=== PATIENT | male | born 1960 | race Hispanic/Latino ===

== ENCOUNTER 2017-05-02 17:53 | Emergency (ER) | payer BC, MEDICAID ==
[2017-05-02] MEDS ORDERED: Sodium Chloride 0.9% 500 ML IV STA (18:13)
[2017-05-02 18:16] VITALS: RESP 17; TEMP 97.7; O2SAT 100
--- NOTE | 2017-05-02 18:28 | ED PDOC ---
Arrival/HPI - General Historian: Patient - History of Present Illness Time/Duration: Prior to Arrival Symptom Onset: Sudden Symptom Course: Improving Quality: Other Severity Level: Moderate (weakness/shaking) Activities at Onset: Light Context: Sitting, Other (at library) <Alicja George - Last Filed: 05/02/17 19:56> <Chelsie Sebastian - Last Filed: 05/02/17 20:12> - General Chief Complaint: Dizziness/Lightheaded Time Seen by Provider: 05/02/17 17:54 - History of Present Illness Narrative History of Present Illness (Text): 05/02/17 18:30 This is a 56Y M with PMH CAD, CHF (EF~41%), HTN, DM here for sudden onset of dizziness and weakness. He reports he was in the library looking for jobs when he suddenly felt dizzy and generalized weakness. He told the special collections librarian to call EMS. Patient reports he did not lose consciousness, fall or have any trauma. He states that he has not eaten since Tuesday. He reports he is worried about his bills and would rather pay for his home rather than food. He denies having any CP, SOB, n/v/d, numbness/tingling, slurred speech, vision changes or fevers. The patient states he does have chills. He denies taking any medications at home. When reviewed previous records at [facility], it is noted that he is supposed to be on multiple medications. He was last d/c from [facility] on January 2017 for CHF exacerbation. (Alicja George) Past Medical History - Provider Review Nursing Documentation Reviewed: Yes - Travel History Have you recently traveled outside [place] w/in the past 3 mons?: No - Infectious Disease Hx of Infectious Diseases: None - Cardiac Hx Cardiac Disorders: Yes Hx Congestive Heart Failure: Yes Hx Hypertension: Yes Other/Comment: unknown cardiac output problem - Endocrine/Metabolic Hx Diabetes Mellitus Type 2: Yes - Psychiatric Hx Substance Use: No <Alicja George - Last Filed: 05/02/17 19:56> Family/Social History - Physician Review Nursing Documentation Reviewed: Yes Family/Social History: Diabetes (mom), Neoplasm/Cancer (lung) Smoking Status: Never Smoked Hx Alcohol Use: No Hx Substance Use: No <Alicja George - Last Filed: 05/02/17 19:56> Allergies/Home Meds <Alicja George - Last Filed: 05/02/17 19:56> <Chelsie Sebastian - Last Filed: 05/02/17 20:12> Allergies/Adverse Reactions: Allergies No Known Allergies Allergy (Verified 05/02/17 18:02) Home Medications: Home Meds Medication Instructions Recorded Confirmed Unobtainable 05/02/17 05/02/17 Review of Systems - Physician Review All systems were reviewed & negative as marked: Yes - Review of Systems Constitutional: Normal, Other (chills). absent: Fevers Eyes: Normal. absent: Vision Changes ENT: Normal. absent: Hearing Changes Respiratory: Normal. absent: SOB, Cough Cardiovascular: Normal. absent: Chest Pain, Palpitations Gastrointestinal: Normal. absent: Abdominal Pain, Diarrhea, Nausea, Vomiting Genitourinary Male: Normal. absent: Dysuria, Frequency Musculoskeletal: Normal. absent: Arthralgias Skin: Normal. absent: Rash, Pruritis Neurological: Dizziness, Other (generalized weakness and tremors). absent: Headache Endocrine: Normal. absent: Diaphoresis Psychiatric: Normal. absent: Anxiety, Depression <Alicja George - Last Filed: 05/02/17 19:56> Physical Exam Vital Signs Reviewed: Yes Temperature: Afebrile Blood Pressure: Normal Pulse: Regular Respiratory Rate: Normal Appearance: Positive for: Well-Appearing, Non-Toxic, Comfortable Pain Distress: None Mental Status: Positive for: Alert and Oriented X 3 Finger Stick Blood Glucose: 63 - Systems Exam Head: Present: Atraumatic, Normocephalic Pupils: Present: PERRL Extroacular Muscles: Present: EOMI Conjunctiva: Present: Normal Mouth: Present: Moist Mucous Membranes Neck: Present: Normal Range of Motion Respiratory/Chest: Present: Clear to Auscultation, Good Air Exchange. No: Respiratory Distress, Accessory Muscle Use Cardiovascular: Present: Regular Rate and Rhythm, Normal S1, S2. No: Murmurs Abdomen: Present: Normal Bowel Sounds. No: Tenderness, Distention, Peritoneal Signs Back: Present: Normal Inspection Upper Extremity: Present: Normal Inspection. No: Cyanosis, Edema Lower Extremity: Present: Edema (non-pitting edema bilaterally ). No: Normal Inspection, Tenderness Neurological: Present: GCS=15, CN II-XII Intact, Speech Normal, Motor Func Grossly Intact, Normal Sensory Function Skin: Present: Warm, Dry, Rashes (flaking of skin on bilateral shins ), Normal Color Psychiatric: Present: Alert, Oriented x 3, Normal Insight, Normal Concentration <Alicja George - Last Filed: 05/02/17 19:56> <Chelsie Sebastian - Last Filed: 05/02/17 20:12> Vital Signs Temp Pulse Resp BP Pulse Ox 05/02/17 19:57 75 17 101/85 100 05/02/17 17:58 97.7 F 77 17 100/82 100 Medical Decision Making Re-evaluation Time: 19:00 <Alicja George - Last Filed: 05/02/17 19:56> <Chelsie Sebastian - Last Filed: 05/02/17 20:12> ED Course and Treatment: 05/02/17 18:30 Impression: This is a 56Y M with PMH CAD, CHF (EF~41%), HTN, DM here for sudden onset of dizziness and weakness. Patient found to have sugar of 63 upon arrival. Differential Diagnosis included but are not limited to: hypoglycemia, r/o ACS Plan: -- Juice and food given -- EKG -- CBC, CMP, BNP, Cardiac ISO -- CXR -- NS bolus -- Reassess and disposition EKG: Ordered, reviewed, and independently interpreted the EKG. Rate : 73 BPM Rhythm : Sinus arrhythmia Interpretation : No ST-segment elevations or depressions, no T-wave inversions, normal intervals. Comparison : Similar to previous EKG. Progress Notes: 05/02/17 18:35 Labs showed hypokalemia and mildly elevated BNP. Potassium given. CXR showed no active disease. On reevaluation the patient feels better and is in no acute distress. I have discussed the results and plan with the patient, who expresses understanding. Patient given the opportunity to ask question, all questions were answered and there is agreement with the plan to discharge the patient home. Patient is stable for discharge. Patient was instructed to follow up with physician/clinic in 1-2 days or return if symptoms persist/worsen or new concerning symptoms arise. (Alicja George) A 56 year old male with episode of dizziness while in the library today. He reports that he has not eaten in 2 days. Denies chest pain or shortness of breath. In agreement with resident note, which includes further HPI details. Patient was seen and evaluated with resident, came up with plan and treatment together. Patient had negative workup and reports feeling better after eating. Will dc 05/02/17 20:11 (Chelsie Sebastian) - Lab Interpretations Lab Results: 05/02/17 18:05 05/02/17 18:05 Lab Results 05/02/17 18:05: Sodium 138, Potassium 3.3 L, Chloride 97 L, Carbon Dioxide 27, Anion Gap 17, BUN 53 H, Creatinine 1.3, Est GFR ( Amer) > 60, Est GFR ( Non-Af Amer) 57, Random Glucose 79, Calcium 9.9, Total Bilirubin 0.9, AST 36, ALT 39, Alkaline Phosphatase 125, Lactate Dehydrogenase 634, Total Creatine Kinase 108, Troponin I 0.03, NT-Pro-B Natriuret Pep 752 H, Total Protein 8.7 H, Albumin 4.8, Globulin 3.9, Albumin/Globulin Ratio 1.2 05/02/17 18:05: WBC 9.3, RBC 5.03, Hgb 15.3, Hct 42.5, MCV 84.5, MCH 30.4, MCHC 36.0, RDW 14.9 H, Plt Count 137, MPV 11.5 H, Gran % 79.3 H, Lymph % (Auto) 12.5 L, [place] % (Auto) 6.2 H, Eos % (Auto) 1.7, Baso % (Auto) 0.3, Gran # 7.40 H, Lymph # 1.2, [place] # 0.6, Eos # 0.2, Baso # 0.03 05/02/17 17:57: POC Glucose (mg/dL) 63 L - RAD Interpretation Radiology Orders: 05/02/17 18:20 CXR [CHEST PORTABLE] [RAD] Stat - Medication Orders Current Medication Orders: Discontinued Medications Sodium Chloride (Sodium Chloride 0.9%) 500 mls @ 999 mls/hr IV .Q31M STA Stop: 05/02/17 18:43 Last Admin: 05/02/17 18:39 Dose: 999 mls/hr Potassium Chloride (K-Dur 20 Meq Er Tab) 40 meq PO STAT STA Stop: 05/02/17 19:30 Last Admin: 05/02/17 20:07 Dose: 40 meq <Alicja George - Last Filed: 05/02/17 19:56> - PA / ENGINEERING ADMINISTRATOR / Resident Statement MD/DO has reviewed & agrees with the documentation as recorded. MD/DO has examined the patient and agrees with the treatment plan. - Scribe Statement The provider has reviewed the documentation as recorded by the Scribe <Chelsie Sebastian - Last Filed: 05/02/17 20:12> - Scribe Statement Ruba Whittaker Provider Scribe Attestation: All medical record entries made by the Scribe were at my direction and personally dictated by me. I have reviewed the chart and agree that the record accurately reflects my personal performance of the history, physical exam, medical decision making, and the department course for this patient. I have also personally directed, reviewed, and agree with the discharge instructions and disposition. (Chelsie Sebastian) Disposition/Present on Arrival - Present on Arrival Any Indicators Present on Arrival: No History of DVT/PE: No History of Uncontrolled Diabetes: No Urinary Catheter: No History of Decub. Ulcer: No History Surgical Site Infection Following: None - Disposition Have Diagnosis and Disposition been Completed?: Yes Disposition Time: 19:30 Patient Plan: Discharge <Alicja George - Last Filed: 05/02/17 19:56> <Chelsie Sebastian - Last Filed: 05/02/17 20:12> - Disposition Diagnosis: Hypoglycemia Disposition: HOME/ ROUTINE Patient Problems: Current Active Problems Problem Status Onset Hypoglycemia Acute Condition: FAIR Print Language: SERBIAN Additional Instructions: Mr. Frye, thank you for letting us take care of you today. Your provider was Dr. George. You were treated for generalized weakness. The emergency medical care you received today was directed at your acute symptoms. If you were prescribed any medication, please fill it and take as directed. It may take several days for your symptoms to resolve. Return to the Emergency Department if your symptoms worsen, do not improve, or if you have any other problems. Please contact your doctor or call one of the physicians/clinics you have been referred to that are listed on the Patient Visit Information form that is included in your discharge packet. Bring any paperwork you were given at discharge with you along with any medications you are taking to your follow up visit. Our treatment cannot replace ongoing medical care by a primary care provider (PCP) outside of the emergency department. Thank you for allowing the [facility] team to be part of your care today. If you had an X-Ray or CT scan: A Radiologist will review the ED reading if any change in treatment is needed we will contact you. Referrals: [facility] at [facility] [Outside] - Follow up with primary [facility] at [facility] [Outside] - Follow up with primary Forms: [employer] (Slovak)
[2017-05-02 18:34] LABS: BASO # 0.03 K/mm3 (0.0-2.0); BASO % 0.3 % (0.0-3.0); EOS # 0.2 (0.0-0.7); EOS % 1.7 % (1.5-5.0); GRAN # 7.4 (1.4-6.5); GRAN % 79.3 % (50.0-68.0); HEMATOCRIT 42.5 % (42.0-52.0); LYMPH # 1.2 (1.2-3.4); LYMPH % 12.5 % (22.0-35.0); MEAN CELL VOLUME 84.5 fl (80.0-105.0); MEAN CORPUSCULAR HEMOGLOBIN 30.4 pg (25.0-35.0); MEAN PLATELET VOLUME 11.5 fl (7.0-11.0); MONO # 0.6 (0.1-0.6); MONO % 6.2 % (1.0-6.0); RED CELL DISTRIBUTION WIDTH 14.9 % (11.5-14.5); WHITE BLOOD COUNT 9.3 10^3/ul (4.5-11.0)
[2017-05-02 18:51] LABS: ALB/GLOB RATIO 1.2 (1.1-1.8); ALKALINE PHOSPHATASE 125 U/L (38-126); ALT/SGPT 39 U/L (7-56); AST/SGOT 36 U/L (17-59); BILIRUBIN,TOTAL 0.9 mg/dL (0.2-1.3); BLOOD UREA NITROGEN 53 mg/dL (7-21); CALCIUM 9.9 mg/dL (8.4-10.5); CARBON DIOXIDE 27 mmol/L (21-33); CHLORIDE 97 mmol/L (98-107); GFR AFRICAN-AMERICAN > 60; GLUCOSE,RANDOM 79 mg/dL (70-110); POTASSIUM 3.3 mmol/L (3.6-5.0); SODIUM 138 mmol/L (132-148); TOTAL PROTEIN 8.7 g/dL (5.8-8.3)
[2017-05-02 19:02] LABS: TROPONIN I 0.03 ng/mL
[2017-05-02] MEDS ORDERED: Potassium Chloride 20 mEq ER Tab PO STA (19:29)
[2017-05-02 19:59] VITALS: BP 101/85; PULSE 75
--- NOTE | 2017-05-03 10:58 | RAD ---
HISTORY: hx of CHF COMPARISON: No prior. FINDINGS: LUNGS: There is mild pulmonary venous congestion and redistribution. There is bibasilar atelectasis. No focal consolidation. PLEURA: No significant pleural effusion identified, no pneumothorax apparent. CARDIOVASCULAR: There is mild cardiomegaly. OSSEOUS STRUCTURES: No significant abnormalities. VISUALIZED UPPER ABDOMEN: Normal. OTHER FINDINGS: None. IMPRESSION: Mild cardiomegaly, pulmonary redistribution and pulmonary venous congestion. No acute findings.
--- NOTE | 2017-05-03 22:59 | CARD ---
APPROVED REPORT EKG Measurement Heart [id number] <Conclusion> Sinus rhythm with premature atrial complexes Left axis deviation Anterior infarct, age undetermined Abnormal ECG
== END 2017-05-02 20:00 | disposition home or self-care (01) ==
LOC: ED 17:53
DX: E11.649 Type 2 diabetes mellitus with hypoglycemia without coma (principal); I10 Essential (primary) hypertension
CPT/HCPCS: 71010; 80053; 82550; 82948; 83615; 83880; 84484; 85025; 93005; 96360; 99285; J7040